=== PATIENT | male | born 1995 ===

== ENCOUNTER 2017-04-19 21:06 | Emergency (ER) | payer OTHER ==
[2017-04-19 21:26] VITALS: BP 118/75; PULSE 68; TEMP 98.1; O2SAT 98
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
[2017-04-19 22:26] VITALS: RESP 20
== END 2017-04-19 22:25 | disposition home or self-care (01) ==
LOC: C.ER 21:06
DX: S13.4XXA Sprain of ligaments of cervical spine, initial encounter (principal); V43.62XA Car passenger injured in collision with other type car in traffic accident, initial encounter; Y92.410 Unspecified street and highway as the place of occurrence of the external cause